=== PATIENT | male | born 1955 | race American Indian/Alaskan Native ===

== ENCOUNTER 2017-04-26 09:53 | Emergency (ER) | payer MEDICAID ==
[2017-04-26 10:17] VITALS: BP 160/99
--- NOTE | 2017-04-26 12:56 | Emergency Department Report ---
ED Medical Clearance HPI - General Chief complaint: Medical Clearance Stated complaint: OUT OF MEDS, B/P, INSULIN Time Seen by Provider: 04/26/17 12:50 Source: patient Mode of arrival: Ambulatory Limitations: No Limitations - History of Present Illness Initial comments: Pt reports he has been out of BP meds and insulin for a couple days. Denies symptoms. -: Gradual, days(s) (2) Reason for Medical Clearance: other Place: home Traumatic Symptoms: denies traumatic injury Associated Symptoms: denies other symptoms Treatments Prior to Arrival: none Home medications: Previous Rx's Medication Instructions Recorded Last Taken Type Insulin Glargine,Hum.rec.anlog 35 unit SQ BID #5 insuln.pen 04/26/17 Unknown Rx [Lantus Solostar] Insulin Lispro [Humalog] 1 - 10 unit SQ BID #10 ml 04/26/17 Unknown Rx amLODIPine [Norvasc] 10 mg PO DAILY #30 tablet 04/26/17 Unknown Rx hydrALAZINE [Apresoline TAB] 50 mg PO TID #90 tab 04/26/17 Unknown Rx Allergies/Adverse reactions: Allergies Allergy/AdvReac Type Severity Reaction Status Date / Time No Known Allergies Allergy Unverified 04/26/17 10:11 ED Review of Systems ROS: Stated complaint: OUT OF MEDS, B/P, INSULIN Other details as noted in HPI Comment: All other systems reviewed and negative Constitutional: denies: chills, fever Eyes: denies: eye pain, eye discharge, vision change ENT: denies: ear pain, throat pain Respiratory: denies: cough, shortness of breath, wheezing Cardiovascular: denies: chest pain, palpitations Endocrine: no symptoms reported Gastrointestinal: denies: abdominal pain, nausea, diarrhea Genitourinary: denies: urgency, dysuria Musculoskeletal: denies: back pain, joint swelling, arthralgia Skin: denies: rash, lesions Neurological: denies: headache, weakness, paresthesias Psychiatric: denies: anxiety, depression Hematological/Lymphatic: denies: easy bleeding, easy bruising ED Past Medical Hx - Past Medical History Previous Medical History?: Yes Hx Hypertension: Yes Hx Diabetes: Yes Hx Renal Disease: Yes (renal insufficiency) - Surgical History Past Surgical History?: No - Social History Smoking Status: Never Smoker Substance Use Type: Prescribed - Medications Home Medications: Home Medications Medication Instructions Recorded Confirmed Last Taken Type Insulin Glargine,Hum.rec.anlog 35 unit SQ BID #5 insuln.pen 04/26/17 Unknown Rx [Lantus Solostar] Insulin Lispro [Humalog] 1 - 10 unit SQ BID #10 ml 04/26/17 Unknown Rx amLODIPine [Norvasc] 10 mg PO DAILY #30 tablet 04/26/17 Unknown Rx hydrALAZINE [Apresoline TAB] 50 mg PO TID #90 tab 04/26/17 Unknown Rx ED Physical Exam - General Limitations: No Limitations General appearance: alert, in no apparent distress - Head Head exam: Present: atraumatic, normocephalic - Eye Eye exam: Present: normal appearance - ENT ENT exam: Present: mucous membranes moist - Neck Neck exam: Present: normal inspection - Respiratory Respiratory exam: Present: normal lung sounds bilaterally. Absent: respiratory distress - Cardiovascular Cardiovascular Exam: Present: regular rate, normal rhythm. Absent: systolic murmur, diastolic murmur, rubs, gallop - GI/Abdominal GI/Abdominal exam: Present: soft, normal bowel sounds - Rectal Rectal exam: Present: deferred - Extremities Exam Extremities exam: Present: normal inspection - Back Exam Back exam: Present: normal inspection - Neurological Exam Neurological exam: Present: alert, oriented X3 - Psychiatric Psychiatric exam: Present: normal affect, normal mood - Skin Skin exam: Present: warm, dry, intact, normal color. Absent: rash ED Course Vital Signs 04/26/17 10:11 Temperature 98.5 F Pulse Rate 60 Respiratory 18 Rate Blood Pressure 160/99 O2 Sat by Pulse 97 Oximetry - Reevaluation(s) Reevaluation #1: 04/26/17 13:45 Pt is in NAD and stable for d/c. ED Medical Decision Making - Lab Data Result diagrams: 04/26/17 13:01 04/26/17 13:01 - Medical Decision Making Will refill and have him follow with PCP this week. - Differential Diagnosis med refill, hyperlgycemia, htn ED Disposition Clinical Impression: Medication refill Disposition: - TO HOME OR SELFCARE Is pt being admited?: No Condition: Good Instructions: Chronic Hypertension (ED) Prescriptions: amLODIPine [Norvasc] 10 mg PO DAILY #30 tablet hydrALAZINE [Apresoline TAB] 50 mg PO TID #90 tab Insulin Glargine,Hum.rec.anlog [Lantus Solostar] 35 unit SQ BID #5 insuln.pen Insulin Lispro [Humalog] 1 - 10 unit SQ BID #10 ml Referrals: PRIMARY CARE, [Primary Care Provider] - 3-5 Days Time of Disposition: 13:47
[2017-04-26 13:11] LABS: Eosinophils % (Auto) 2.1 % (0.0-4.3); Hematocrit 37.3 % (35.5-45.6); Mean Corpuscular HGB Conc 35 % (32-34); Mean Corpuscular Hemoglobin 29 pg (28-32); Mean Corpuscular Volume 84 fl (84-94); Platelet Count 319 K/mm3 (140-440); Red Blood Count 4.44 M/mm3 (3.65-5.03); Red Cell Distribution Width 14.3 % (13.2-15.2)
[2017-04-26 13:37] LABS: Calcium 8.7 mg/dL (8.4-10.2); Chloride 101.2 mmol/L (98-107); Potassium 4.1 mmol/L (3.6-5.0)
== END 2017-04-26 15:44 | disposition home or self-care (01) ==
LOC: ED 09:53
DX: Z76.0 Encounter for issue of repeat prescription (principal); I10 Essential (primary) hypertension; E11.9 Type 2 diabetes mellitus without complications; Z79.4 Long term (current) use of insulin
CPT/HCPCS: 36415; 80048; 85025; 99283